=== PATIENT | female | born 1945 | race Caucasian/White ===

== ENCOUNTER 2024-04-27 09:22 | Outpatient (AMB) | payer MEDICARE, SELFPAY ==
[2024-04-27 09:34] VITALS: BP 169/69; PULSE 88; RESP 15; O2SAT 100; BMI 23.5
--- NOTE | 2024-04-27 09:34 | A.OFFVIS_ITS ---
Vital Signs 04/27/24 09:34 Height 5 ft 7 in Weight 150 lb BMI 23.5 BP 169/69 H Blood Pressure Location Lt brachial Position Sitting Respiration 15 Pulse 88 Pulse Source Pulse Oximeter Pulse Oximetry (%) 100 Oxygen Delivery Method Room Air Intake Visit Reasons: Paresthesia Allergies promethazine [From Phenergan] Adverse Reaction (Severe, Verified 04/27/24 09:36) Facial Swelling Medication List - Last Reconciled 04/27/24 by Ellen Lujan LPN galcanezumab-gnlm (Emgality Pen) mg subcut levothyroxine (Synthroid) 75 mcg PO DAILY lisinopril 10 mg PO DAILY HPI HPI Paresthesia: Details: 78-year-old female who presents today to the office for evaluation of paresthesias. She has a history of neuropathy in both legs and feet, associated with numbness and burning pain that started about five years ago but has gotten much worse in the past year. Pain is described as a burning numbing sensation in both legs of the posterior and lateral posterior aspect of the thigh and the lateral aspect of the calf. The numbness and aching in the leg are described as 8/10 in intensity. The aching and burning are more pronounced on the right side, and she does have neuropathy on the other side as well. She has difficulty walking and walks only one quarter of a mile. She can sit for about 1 hour. It affects her social and functional lifestyle. Her Oswestry disability score was 21. She has tried physical therapy with both manual therapy and exercises, as well as chiropractic manipulation, massage therapy, acupuncture, and herbal and opioid medications, none of which have been helpful. She is not taking any medications. She is also undergoing psychological counseling as needed. Past history is not about the right sacroiliac joint strain that also caused low back pain. She is retired. Review of Systems Const All systems reviewed & are unremarkable except as noted in HPI and below Physical Exam Vital Signs: Last Vital Signs Pulse 88 04/27/24 09:34 Resp 15 04/27/24 09:34 BP 169/69 H 04/27/24 09:34 Pulse Ox 100 04/27/24 09:34 Oxygen Delivery Method Room Air 04/27/24 09:34 BMI result Body Mass Index 23.5 General: Appears afebrile. Alert and oriented. Mood and affect appropriate. Follows and participates in conversation appropriately. Respiratory effort is unlabored. Able to transition from sit to stand unassisted. Ambulates with bilaterally normal heel strike and toe off. Tenderness to palpation overlying the right sacroiliac joint. SI joint provocation is positive. Results Reviewed Results Reviewed: No imaging is available for review. Assessment & Plan Assessment & Plan (1) Piriformis syndrome: Code(s): G57.00 - Lesion of sciatic nerve, unspecified lower limb Category: Medical (2) Sacroiliac joint dysfunction: Code(s): M53.3 - Sacrococcygeal disorders, not elsewhere classified Category: Medical Plan I discussed sacroiliac joint as a possible source of her symptoms. The best way to treat would be through a diagnostic right sacroiliac joint injection as the next step. The patient would like to try a combination of physical therapy and injections. Informed the patient that insurance approval is required. We will file a PA for approval and keep her updated. The patient will let us know when she wants to proceed with the injection. The patient interested in trying further physical therapy at this time. A script was also provided to the patient for physical therapy. Scribed for Dr. Minor by Mike Mayer, medical reimbursement manager, on 04/27/2024. I, Dr. Minor, have personally reviewed and agree with the information entered by the scribe. Orders: Orders PT Evaluation and Treatment 04/27/24 M53.3 - Sacrococcygeal disorders, not elsewhere classified, G57.00 - Lesion of sciatic nerve, unspecified lower limb Coding Level of Care Code New Pt Level 4 (73899) Diagnoses Piriformis syndrome G57.00 Sacroiliac joint dysfunction M53.3
== END 2024-04-27 10:14 | disposition home or self-care (01) ==
PROVIDERS: PCP Family Medicine; Visit Provider Internal Medicine
DX: G57.00 Lesion of sciatic nerve, unspecified lower limb (principal); M53.3 Sacrococcygeal disorders, not elsewhere classified
CPT/HCPCS: 99204

== ENCOUNTER → 2024-04-27 09:22 | Outpatient (BNVA) | payer MEDICARE, SELFPAY | PROVIDERS: PCP Family Medicine; Visit Provider Internal Medicine | DX: G57.00 Lesion of sciatic nerve, unspecified lower limb (principal); M53.3 Sacrococcygeal disorders, not elsewhere classified | CPT/HCPCS: 99202 ==

== ENCOUNTER 2024-05-28 10:12 | Outpatient (AMB) | payer MEDICARE, SELFPAY ==
--- NOTE | 2024-05-28 10:12 | A.OFFVIS_ITS ---
Intake Visit Reasons: Procedure Concerns Allergies promethazine [From Phenergan] Adverse Reaction (Severe, Verified 04/27/24 09:36) Facial Swelling HPI HPI Procedure Concerns: Details: 78-year-old female who presents today via tele-visit for discussion of procedure. The patient reports about a week and a half ago, she had experienced excruciating pain in her right SI joint for a week. At that time, she had difficulty sleeping with pain. She has tried ice, heat, and rest, and feels the pain is stable at this time. She also reports when she had experienced acute pain in the past, the pain was at the top of her pelvis. Also, In the past, most of her discomfort had been an aching and numbness that radiated the sciatic nerve down her right leg. She sometimes experiences numbness and burning pain that radiates down into her right leg. She is wondering whether the short acting anesthetic will use during the right sacroiliac joint fusion. The patient states that she had a nerve conduction in the recent past. She tried physical therapy for piriformis syndrome. At that time, her chiropractor did not feel that her piriformis was tight. She will be seeing a physical therapist on 05/31/2024. Review of Systems Const All systems reviewed & are unremarkable except as noted in HPI and below Telehealth Telehealth Telehealth Platform: [facility] Location of provider rendering services: practice address Location of patient: address on file Patient Identification confirmed using: Name, : Yes Telehealth method: video Patient verbally consented to treatment: Yes Patient verbally consented to billing insurance company: Yes Patient informed of any privacy concerns related to visit: Yes Minutes spent on Phone/Video with Pt.: 25 Results Reviewed Results Reviewed: No imaging is available for review. Assessment & Plan Assessment & Plan (1) Piriformis syndrome: Code(s): G57.00 - Lesion of sciatic nerve, unspecified lower limb Category: Medical (2) Sacroiliac joint dysfunction: Code(s): M53.3 - Sacrococcygeal disorders, not elsewhere classified Category: Medical Plan I answered her questions regarding her ongoing problem, which likely includes both SI joint dysfunction and piriformis syndrome. I recommended following up with physical therapy regarding working on the piriformis syndrome. We will plan on proceeding with the diagnostic SI joint induction when she is ready to proceed. Scribed for Dr. Minor by Richard Cha, registered medical assistant, on 05/28/2024.? I, Dr. Minor, have personally reviewed and agree with the information entered by the scribe. Coding Level of Care Code Tele Est Pt Level 4 (43128) Diagnoses Piriformis syndrome G57.00 Sacroiliac joint dysfunction M53.3 Time Spent (min) 30
== END 2024-05-28 10:13 | disposition home or self-care (01) ==
LOC: HO.PMC 10:12
PROVIDERS: PCP Family Medicine; Visit Provider Internal Medicine
DX: G57.00 Lesion of sciatic nerve, unspecified lower limb (principal); M53.3 Sacrococcygeal disorders, not elsewhere classified
CPT/HCPCS: 99214

== ENCOUNTER 2025-01-04 12:41 | Outpatient (AMB) | payer MEDICARE, SELFPAY ==
--- OUTSIDE RECORDS SUMMARY | 2025-01-04 12:44 | XMS_ITS | Data Portability ---
Author Organization [facility], [employer] Address [address] [place] [phone] Assessment Encounter Date Assessment Date Assessment LastModified by Organization Details LastModified Time 11/21/2024 11/21/2024 1. Inflamed Seborrheic Keratosis LN2 applied. RV 1 month if any lesion fails to resolve. Aftercare instructions provided 2. Seborrheic Keratoses - benign. Observation. Return if change 3. Solar Lentigo - Observation. Return if change. Sun protection stressed 4. Nevi- Observation. Return if change Warning signs of malignancy melanoma stressed 5. Atopic dermatitis - start triamcinolone 0.1% topical cream BID x6 weeks. [email or web address] Not available 11/21/2024 13:38:13 Plan of Treatment Reminders Order Date Submit Date Provider Last Modified By Organization Details Last Modified Time Details Appointments Dermatolo gy Any 15 2025 01:45P M CHRIS CHEEMA Not available Not available Not available Lab None recorded. Referral None recorded. Procedures None recorded. Surgeries None recorded. Imaging None recorded. Medication Orders triamcino lone acetonide 0.1 % topical cream 2024 025 [id number], [address] [facility] [address], [place], [address], 11/21/2024 13:20:01 Patient TargetsNo targets recorded. Patient InstructionsNo instructions recorded. Reason for Referral None Reported. Problems Name Problem SNOMED Code Status Onset Date Resolution Date Notes Provider Name and Address Organization Details Recorded Time Disorder of thyroid gland 20557511 Active 2024 [facility] 13:19:17 Hypercholestero lemia 57017515 Active 2024 [facility] 13:19:29 Problem Notes None recorded. Procedures Surgical History Date Name Laterality Status Provider Name and Address Organization Details Recorded Time Cryosurgery completed CHRIS CHEEMA [address] [facility] [address], [place], [address], [facility] 11/21/2024 14:00:21 Imaging Results None recorded. Procedure Notes None recorded. Medical Equipment None Reported. Allergies Allergen ID Allergen Name Allergen Category Reaction Reaction Severity Criticality Documentation Date Start Date Code Code System Note Provider Name and Address Organization Details Recorded Time 78 Phenergan medicatio n Not available Not available Not available 11/21/2024 53678 8 RxNorm [facility] 12:54:43 Medications Name Sig Start Date Stop Date Status Note LastModified by Organization Details LastModified Time liothyronin e 5 mcg tablet TAKE 1/2 TABLET BY MOUTH EVERY MORNING 60 MINUTES BEFORE MORNING MEAL 11/21 completed Not Available Not Available Not Available triamcinolo ne acetonide 0.1 % topical cream APPLY A THIN LAYER TO THE AFFECTED AREA(S) BY TOPICAL ROUTE 2 TIMES PER DAY 2024 active Not Available Not Available Not Avai lable Synthroid 25 mcg tablet TAKE 1/2 TABLET BY MOUTH EVERY MORNING 60 MINUTES BEFORE MORNING MEAL active Not Available Not Available No t Available Synthroid 50 mcg tablet TAKE 1 TABLET BY MOUTH EVERY MORNING 60 MINUTES BEFORE MORNING MEAL active Not Available Not Available No t Available lisinopril active Not Available Not Av ailable Not Available Vitals None Recorded Social History None recorded. Functional Status None recorded. Mental Status None recorded. Family History Relationship Description Onset Age of this Age Resolved Age Notes LastModified by Organization Details LastModified Time Father No current problems or disability Not available 11/21 12:55:21 Mother No current problems or disability [email or web address] Not available 11/21 12:55:21 Medical History No medical history recorded. Gynecological HistoryNo gynecological history recorded. Obstetrics History GPAL:G 0 P 0 0 0 0 Immunizations Vaccine Type Date Status Note Provider Nam e and Address Organization Details Recorded Time COVID-19, mRNA, LNP-S, PF, 100 mcg/0.5mL dose or 50 mcg/0.25mL dose 2 completed Not Available [facility] 11/21/2024 12:51:40 zoster recombinant 9 completed Not Available [facility] 11/21/2024 12:51:40 COVID-19, mRNA, LNP-S, bivalent, PF, 50 mcg/0.5 mL or 25mcg/0.25 mL dose 2 completed Not Available [facility] 11/21/2024 12:51:40 COVID-19, mRNA, LNP-S, PF, 50 mcg/0.5 mL 3 completed Not Available [facility] 11/21/2024 12:51:40 COVID-19, mRNA, LNP-S, PF, 100 mcg/0.5mL dose or 50 mcg/0.25mL dose 1 completed Not Available [facility] 11/21/2024 12:51:40 Influenza, split virus, trivalent, preservative 2 completed Not Available [facility] 11/21/2024 12:51:40 Pneumococcal conjugate PCV 13 8 completed Not Available [facility] 11/21/2024 12:51:40 COVID-19, mRNA, LNP-S, PF, 100 mcg/0.5mL dose or 50 mcg/0.25mL dose 1 completed Not Available [facility] 11/21/2024 12:51:40 COVID-19, mRNA, LNP-S, PF, 100 mcg/0.5mL dose or 50 mcg/0.25mL dose 1 completed Not Available [facility] 11/21/2024 12:51:40 Influenza, high-dose, quadrivalent, PF 2 completed Not Available [facility] 11/21/2024 12:51:40 pneumococcal polysaccharide PPV23 9 completed Not Available [facility] 11/21/2024 12:51:40 Past Encounters Encounter ID Performer Location Encounter Start Date Encounter Closed Date Diagnosis/Indication Diagnosis SNOMED-CT Code Diagnosis ICD10 Code Diagnosis Note [id number] CHRIS CHEEMA Main Office [address] [place] [address] [address] [place] [address] 11/21/2024 12:50:34 11/21/2024 14:12:40 Family history of neoplasm of skin 461074597 Z84.89 Atopic dermatitis 902172 01 L20.89 Seborrheic keratosis 394 345195 L82.1 Solar lentigo 62313055 L 81.4 Melanocytic nevus 659218 001 D22.9 Inflamed s eborrheic keratosis 207515425 L82.0 Health Concerns Section Related Observation LastModified by Organization Detai ls LastModified Time None Recorded Concern Status LastModified by Organization Details LastModified Time None Recorded Advance Directives Directive None Recorded Payers Insurance Date Sequence Insurance Name Policy Number Policy Luciano Covered Member ID Luciano Member ID Guarantor Name 11/22/2024 1 [place] [employer] Gilberto Perez [id number] Gilberto Perez 11/21/2024 2 [place] [id number] Gilberto Perez [id number] Gilberto Perez Notes Date Note Type Note Provider Name and Address Organization Details Recorded Time 11/21/2024 text/html New patient presents today for a full skin exam today. Patient reports NMSC in father. Patient denies personal history of NMSC or MM. Patient has several lesions on her trunk and face that she would like checked and removed if possible. CHRIS CHEEMA [address] [place] [address] [address], [place], [address], [facility] 11/21/2024 14:01:31 OBGyn Episode No OBEpisode recorded.
--- NOTE | 2025-01-04 13:18 | A.SPINEOV_ITS ---
Intake Visit Reasons: angi leg pain & numbness Intake Note: Ms. Perez is here today c/o bilateral leg pain and numbness. MRI done @ [facility] (brought discs). Mortgage Loan Processor Required: No Allergies promethazine (From Phenergan) Adverse Reaction (Severe, Verified 04/27/24 09:36) Facial Swelling Assessment & Plan Assessment & Plan (1) Numbness and tingling of both feet: Code(s): R20.0 - Anesthesia of skin; R20.2 - Paresthesia of skin Category: Medical Plan Dear colleague On 01/04/2025, I saw Gilberto Perez to the office today with a chief complaint of burning feet and weakness . HPI: This 79-year-old female developed progressive symptoms burning pain in both feet numbness in both legs with the right side more affected than the left side, fatigue and weakness in both legs and intermittent pain in the SI joint regions. The pain started 5 years ago following several months of sitting at the computer. 2 years ago the symptoms started progressing more rapidly. Walking improves the symptoms. Sitting is the worst. She has seen several medical specialists including vascular and neurologists and all tests have come back negative so far, including an EMG. She did physical therapy chiropractic therapy and acupuncture. She comes in to see me for 2nd opinion. PMH: Hypothyroidism, hypertension, migraines, Raynaud's Medications: Synthroid, lisinopril, progresterone, estrogen Allergies: Phenergan Social history: Retired. Nonsmoker Physical Exam: Height 5'7 weight 145 lb. On inspection of the feet there is significant atrophy of the intrinsic musculature of the feet, where the right side is more affected than the left side. Individual testing of the motor groups is intact. Sensory exam is grossly intact. Reflexes are symmetrically present. No pathological reflexes. Radiological Studies: MRI done at [facility] ( MRI lumbar spine) and [place] (MRI cervical and thoracic spine) showed no spinal cord compression or nerve compression. Impression/Plan: This patient is suffering from some form of zachary or polyneuropathy producing subjective sensory changes with tingling and numbness and objective muscle atrophy of the feet musculature. Her clinical scenario is not consistent with neurogenic claudication and the very mild spinal stenosis at the MRI of the lumbar spine she will be ignored in his not a cause of her symptoms. I advised her to seek advice at [facility] General Neurology, in particularly a neurologist specializing polyneuropathy. Thank you for allowing me to participate in your patients care. total time spent was 60 minutes in counseling ,coordination of plan, personal review of imaging, surgical decision making and subsequent plan Mahesh Gregg MD, PhD Spine Fellowship Trained Neurosurgeon Director, [facility] Coding Level of Care Code New Pt Level 5 (49041) Diagnoses Numbness and tingling of both feet R20.0; R20.2
== END 2025-01-04 14:07 | disposition home or self-care (01) ==
LOC: HO.HNS 12:42
PROVIDERS: PCP Family Medicine; Visit Provider Neurological Surgery
DX: R20.0 Anesthesia of skin (principal); R20.2 Paresthesia of skin
CPT/HCPCS: 99205

== ENCOUNTER → 2025-01-04 12:41 | Outpatient (BNVA) | payer MEDICARE, SELFPAY | PROVIDERS: PCP Family Medicine; Visit Provider Neurological Surgery | DX: R20.0 Anesthesia of skin (principal); R20.2 Paresthesia of skin | CPT/HCPCS: 99202 ==